=== PATIENT | female | born 1955 | race Caucasian/White ===

== ENCOUNTER → 2016-10-12 | Outpatient (CLI) | payer BC ==
[~2016-10-12] MED LIST: ALBU17IN INH; ALEN70TA39 PO; ALEV220T26 PO; AVEL1TAB PO; CALC500T49 PO; DULE200A INH; GLUCTAB6 PO; LEVO75TA4 PO; MAG400TA PO; PRED20TAB PO; PREM0.9T PO; VITA10002 PO; VITA100066 PO; VITMTA PO
--- NOTE | 2016-10-12 15:46 | REPMRS ---
Patient History The patient states she had a clinical breast exam in 07/2016. Patient is postmenopausal. Family history of prostate cancer in father at age 50 or over. Taking unspecified hormones for 32 years. Digital Woman Screen Mammo: October 12, 2016 - Exam #: [id number] Bilateral CC and MLO view(s) were taken. Technologist: Laura Pitts, Technologist Prior study comparison: October 08, 2015, digital woman screen mammo performed at [facility]. October 03, 2014, digital woman screen mammo performed at [facility]. September 25, 2013, digital woman screen mammo performed at [facility]. FINDINGS: The breast tissue is extremely dense which could obscure a lesion on mammography. There is an extremely dense symmetrical pattern of residual fibroglandular tissue. There has been no change in the appearance of the mammogram from the previous studies. There is no interval development of dominant mass, archetectural distortion, or microcalcific cluster suggestive of malignancy. ASSESSMENT: BI-RADS/ACR category 2 mammogram. Benign finding(s). Recommendation Routine screening mammogram of both breasts in 1 year (for women over age 40). This mammogram was interpreted with the aid of an FDA-approved computer-aided dectection system. Electronically Signed By: Esteban Colon MD 10/12/16 [id number]
--- NOTE | 2016-10-14 09:11 | DEXA ---
AP SPINE L1 - L4 1.074 -1.0 0.4 LT FEMUR TOTAL 0.810 -1.6 -0.5 RT FEMUR TOTAL 0.827 -1.4 -0.4 TOTAL BODY TOTAL OTHER DUAL FEMUR FRAX* ASSESSMENT Risk factors: Premature menopause. 10 year probability of fracture Major osteoporotic fracture 8.9 % Hip fracture 1.3 % COMMENTS: There is low bone density of the spine and hips. The density of the spine has increased 18.7% since the initial exam on 2008. The spine density has decreased 0.1% since the most recent exam on 10/03/2014. The density of the left hip has increased 8.4% since initial exam on 08/07/2008. The density of the left hip has increased 0.7% since the most recent exam on 12/2014. The density of the right hip has increased 10.6% since initial exam on 2008. The density of the right hip has increased 1.7% since the most recent exam on . FOLLOW-UP: Recommendation for the next bone density exam: 2 years. CHIARAD
== END ==
LOC: M WHC 14:26
PROVIDERS: ATTEND Nurse Practitioner Adult Health
DX: Z12.31 Encounter for screening mammogram for malignant neoplasm of breast (principal); M86.9 Osteomyelitis, unspecified
CPT/HCPCS: 77080; G0202

== ENCOUNTER → 2019-01-15 | Outpatient (CLI) | payer BC ==
[~2019-01-15] MED LIST changes: -ALEN70TA39 PO; +ALEN70TA74 PO; -AVEL1TAB PO; +AVEL1TAB3 PO; +CYAN100049 PO; -VITA10002 PO
--- NOTE | 2019-01-15 09:16 | REP ---
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 I suspect that the trapezium and trapezoid are also fused. This could be congenital or could be secondary to the chronic osteoarthritis. 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 Mineralization and joint spaces otherwise are unremarkable. There is no acute fracture or dislocation. Impression: Advanced osteoarthritis at the thumb base as described with deformity of the trapezium, subluxation of the thumb metacarpal base, possible fusion of the trapezium and trapezoid and scaphoid trapezial osteoarthritis. Electronically Signed by Alexey Negro MD 01/15/2019 09:07 A
== END ==
LOC: M WUC 08:46
PROVIDERS: ATTEND Nurse Practitioner Family
DX: M79.642 Pain in left hand (principal)

== ENCOUNTER → 2019-04-30 | Outpatient (CLI) | payer BC ==
--- NOTE | 2019-05-01 07:55 | ECGEPIP ---
[facility] Test Date: 2019-04-30 Pat Name: MELY ERAZO Department: Room: - Gender: Female Baker Pastry: LUCAS : 1955 Requested By: TIM Mendosa Order Number: [id number] Reading MD: Brannon Salmon Measurements Intervals [place] Rate: 63 P: 77 GA: 131 QRS: 75 QRSD: 96 T: 41 QT: 431 QTc: 444 Interpretive Statements SINUS RHYTHM WITH FREQUENT SUPRAVENTRICULAR PREMATURE COMPLEXES Ectopy is new from tracing done 09-01-15 Electronically Signed on 05-01-2019 7:54:45 EST by Brannon Salmon
== END ==
LOC: M EKG 09:23
PROVIDERS: ATTEND Orthopaedic Surgery Hand Surgery
DX: Z01.810 Encounter for preprocedural cardiovascular examination (principal); R94.31 Abnormal electrocardiogram [ECG] [EKG]

== ENCOUNTER → 2019-06-03 | Outpatient (REF) | payer BC | LOC: M LAB REF 10:41 | PROVIDERS: ATTEND Nurse Practitioner Family | DX: R30.0 Dysuria (principal) ==

== ENCOUNTER → 2019-06-06 | Outpatient (REF) | payer BC | LOC: M LAB REF 16:31 | PROVIDERS: ATTEND Nurse Practitioner Family | DX: R30.0 Dysuria (principal) ==

== ENCOUNTER → 2021-01-08 | Outpatient (CLI) | payer BC ==
[~2021-01-08] MED LIST changes: -ALEN70TA74 PO; +ALEN70TA82 PO; -MAG400TA PO; +MAGN400T35 PO
--- NOTE | 2021-01-08 15:27 | REP ---
INDICATION: S39.012A STRAIN OF MUSCLE M54.32 SCIAITCA LEFT SIDE. COMPARISON: None. TECHNIQUE: Five views FINDINGS: 7 degree scoliosis convexity to the right. Marked narrowing and L1-2 and L4-5 disc spaces with endplate sclerosis. Facet arthropathy. No fractures. Normal alignment. IMPRESSION: Normal alignment. Facet arthropathy. Spondylosis. No fracture. <Electronically signed by Yoshi Kilgore > 01/08/21 1521
--- NOTE | 2021-01-08 15:28 | REP ---
INDICATION: S39.012A STRAIN OF MUSCLE M54.32 SCIAITCA LEFT SIDE. COMPARISON: None. TECHNIQUE: Four views FINDINGS: The sacroiliac joints are unremarkable. There are degenerative changes lower lumbar spine. There is no bone test abnormality, fracture or dislocation the sacrum or coccyx. IMPRESSION: Negative exam <Electronically signed by Yoshi Kilgore > 01/08/21 152
== END ==
LOC: M WUC 14:58
PROVIDERS: ATTEND Physician Assistant
DX: S39.012A Strain of muscle, fascia and tendon of lower back, initial encounter (principal); X58.XXXA Exposure to other specified factors, initial encounter; Y92.89 Other specified places as the place of occurrence of the external cause; Y93.89 Activity, other specified; Y99.8 Other external cause status; M54.32 Sciatica, left side

== ENCOUNTER → 2021-06-18 | Outpatient (CLI) | payer BC | LOC: M WHC 12:38 | PROVIDERS: ATTEND Internal Medicine | DX: M80.052A Age-related osteoporosis with current pathological fracture, left femur, initial encounter for fracture (principal) ==

== ENCOUNTER → 2021-07-07 | Outpatient (REF) | payer BC ==
[2021-07-07 11:21] LABS: CALCIUM, URINE 12.5 MG/DL; CREATININE 24 HOUR, URINE 701.8 MG/24HR (600-1800); CREATININE, URINE 31.9 MG/DL
== END ==
LOC: M LAB REF 09:25
PROVIDERS: ATTEND Orthopaedic Surgery Orthopaedic Trauma
DX: M81.0 Age-related osteoporosis without current pathological fracture (principal)

== ENCOUNTER → 2021-09-27 | Outpatient (REF) | payer BC ==
[2021-09-27 17:10] LABS: PERCENT SATURATION 8.7 % (13.2-45.0)
== END ==
LOC: M LAB REF 16:21
PROVIDERS: ATTEND Internal Medicine
DX: D62 Acute posthemorrhagic anemia (principal); D50.9 Iron deficiency anemia, unspecified

== ENCOUNTER → 2022-03-17 | Outpatient (CLI) | payer BC ==
[~2022-03-17] MED LIST changes: -DULE200A INH; -GLUCTAB6 PO; +GLUCTAB7 PO; +MOME13HF7 INH
[2022-03-17 13:21] LABS: ALBUMIN 3.6 GM/DL (3.2-5.2); ALT/SGPT 14 U/L (12-78); BILIRUBIN,TOTAL 0.4 MG/DL (0.2-1.0); BLOOD UREA NITROGEN 18 MG/DL (7-18); CALCIUM LEVEL 9.9 MG/DL (8.8-10.2); CARBON DIOXIDE LEVEL 29 MEQ/L (21-32); CHLORIDE LEVEL 104 MEQ/L (98-107); CREATININE FOR GFR 0.76 MG/DL (0.55-1.30); FREE T4 1.18 NG/DL (0.76-1.46); GLOMERULAR FILTRATION RATE > 60.0 (>45); GLUCOSE, FASTING 85 MG/DL (70-100); POTASSIUM SERUM 4.5 MEQ/L (3.5-5.1); SODIUM LEVEL 138 MEQ/L (136-145); THYROID STIMULATING HORMONE 0.587 uIU/ML (0.358-3.740); TOTAL PROTEIN 7.1 GM/DL (6.4-8.2)
[2022-03-17 14:27] LABS: TOTAL 25(OH) VITAMIN D 61.4 NG/ML (30.0-100.0)
== END ==
LOC: M WUC 09:28
PROVIDERS: ATTEND Internal Medicine Endocrinology, Diabetes & Metabolism
DX: E03.9 Hypothyroidism, unspecified (principal); M81.8 Other osteoporosis without current pathological fracture

== ENCOUNTER → 2023-01-17 | Outpatient (CLI) | payer MEDICARE | LOC: M SOG 09:29 | PROVIDERS: ATTEND Physician Assistant | DX: M25.531 Pain in right wrist (principal); M79.644 Pain in right finger(s) ==

== ENCOUNTER → 2023-01-23 | Outpatient (CLI) | payer MEDICARE | LOC: M WHC 09:22 | PROVIDERS: ATTEND Internal Medicine | DX: Z12.31 Encounter for screening mammogram for malignant neoplasm of breast (principal) ==

== ENCOUNTER → 2023-02-16 | Outpatient (CLI) | payer MEDICARE ==
[2023-02-16 13:45] LABS: BLOOD UREA NITROGEN 17 MG/DL (9-23); CREATININE FOR GFR 0.71 MG/DL (0.55-1.30); GLOMERULAR FILTRATION RATE > 60.0 (>45)
== END ==
LOC: M LAB 12:42
PROVIDERS: ATTEND Physician Assistant
DX: M25.531 Pain in right wrist (principal)

== ENCOUNTER → 2023-03-02 | Outpatient (CLI) | payer MEDICARE | LOC: M PLARAD 08:25 | PROVIDERS: ATTEND Orthopaedic Surgery Hand Surgery | DX: M79.644 Pain in right finger(s) (principal); M25.531 Pain in right wrist; R93.6 Abnormal findings on diagnostic imaging of limbs; M65.841 Other synovitis and tenosynovitis, right hand ==

== ENCOUNTER → 2024-01-25 | Outpatient (CLI) | payer MEDICARE | LOC: M WHC 10:57 | PROVIDERS: ATTEND Internal Medicine | DX: Z12.31 Encounter for screening mammogram for malignant neoplasm of breast (principal) ==

== ENCOUNTER → 2025-01-21 | Outpatient (REF) | payer MEDICARE | LOC: M LAB REF 14:07 | PROVIDERS: ATTEND Internal Medicine | DX: Z82.49 Family history of ischemic heart disease and other diseases of the circulatory system (principal) ==

== ENCOUNTER → 2025-01-28 | Outpatient (CLI) | payer MEDICARE | LOC: M WHC 09:16 | PROVIDERS: ATTEND Internal Medicine | DX: Z12.31 Encounter for screening mammogram for malignant neoplasm of breast (principal); R92.333 Mammographic heterogeneous density, bilateral breasts ==

== ENCOUNTER → 2025-04-16 | Outpatient (CLI) | payer MEDICARE | LOC: M WUC 08:31 | PROVIDERS: ATTEND Student in an Organized Health Care Education/Training Program | DX: M81.8 Other osteoporosis without current pathological fracture (principal) ==